=== PATIENT | female | born 1945 | race Caucasian/White ===

== ENCOUNTER → 2023-10-22 07:53 | Outpatient (REF) | payer MEDICARE, OTHER, SELFPAY | LOC: HWRAD 07:53 | PROVIDERS: ATTENDING PHYSICIAN Internal Medicine; FAMILY PHYSICIAN Physician Assistant Medical | DX: M81.0 Age-related osteoporosis without current pathological fracture (principal) | CPT/HCPCS: 77080; 77081 ==

== ENCOUNTER 2023-11-13 04:16 | Inpatient (IN) | payer MEDICARE, OTHER, SELFPAY ==
[2023-11-12 22:51] VITALS: BP 158/102
[2023-11-12 23:07] LABS: % Basophils 0.7 % (0-2); % Immature Granulocytes 0.2 % (0-0.5); % Lymphocytes 36.6 % (20.5-51.1); % Monocytes 7.3 % (1.7-9.3); % Neutrophils 53.2 % (42.2-75.2); Absolute Basophils 0.1 10^3/uL (0-0.2); Absolute Eosinophils 0.2 10^3/uL (0-0.7); Absolute Lymphocytes 3.6 10^3/uL (1.2-3.4); Absolute Monocytes 0.7 10^3/uL (0.1-0.6); Absolute Neutrophils 5.3 10^3/uL (1.4-6.5); Hematocrit 41.7 % (37.0-47.0); Hemoglobin 14.4 g/dL (12.0-16.0); Mean Corp Hgb Conc. 34.5 g/dL (33.0-37.0); Mean Corpuscular Hgb 30.2 pg (27.0-31.0); Mean Corpuscular Volume 87.4 fL (81.0-99.0); Mean Platelet Volume 9.5 fL (7.4-10.4); Nucleated Red Blood Cells % 0 %; Platelet Count 262 10^3/uL (130-400); Red Blood Cell Count 4.77 10^6/uL (4.20-5.40); Red Cell Dist. Width 13.2 % (11.5-14.5); White Blood Cell Count 9.9 10^3/uL (4.8-10.8)
[2023-11-12 23:25] LABS: ALT (SGPT) 30 U/L (0-35); AST (SGOT) 31 U/L (14-36); Albumin 4.4 g/dl (3.5-5.0); Alkaline Phosphatase 47 U/L (38-126); Blood Urea Nitrogen 22 mg/dl (7-17); Calcium 9.8 mg/dl (8.4-10.2); Carbon Dioxide 27 mmol/L (22-30); Chloride 103 mmol/L (98-107); Glucose 119 mg/dl (70-99); Potassium 3.8 mmol/L (3.5-5.1); Sodium 135 mmol/L (135-145); Total Bilirubin 0.3 mg/dl (0.2-1.3); Total Protein 6.7 g/dl (6.3-8.2); eGFR > 60.00
[2023-11-12 23:35] LABS: Troponin I 0.734 ng/ml
[2023-11-12 23:45] VITALS: BP 131/77
[2023-11-13] VITALS (22 sets, daily range): BP systolic 100–166; BP diastolic 67–108; BMI 23.2; BMI 22.4
--- NOTE | 2023-11-13 00:09 | ED.GENMED ---
History of Present Illness
General
Chief Complaint: Chest Pain
Source: patient and spouse
Exam Limitations: none
Time Seen by Provider: 11/12/23 23:49
Nursing documentation reviewed up to this point in time: agreed with
Travel History
Have you had any contact with someone who has COVID-19?: No
Do you have any symptoms of coronavirus? Fever > 100 degrees, chills, cough, shortness of breath, sore throat, loss of taste or smell, muscle aches, or headache?: No
History of Present Illness
History of Present Illness:
78-year-old female presents emerged department complaining of upper back pain and jaw pain with occasional chest pain since 7 PM tonight. She has a history of mild single-vessel coronary disease in the LAD. Catheterization 2016. She recently
learned of news that her son purchased a house and felt stressed.
Past History
Past History
ED Past Medical History: HTN
ED Past Surgical History: Other (R rotator cuff repair, Uterin CA with radiation and Hysterectomy, Hernia repair, several breast biopsies.)
Social History
Tobacco: Non-smoker
Alcohol: Occasional
Drug: None
Personal:
Living: with family
Review of Systems
Review of Systems
Allergies reviewed?: Yes
All Other Systems: Not applicable
Constitutional: Reports no symptoms
EENT: Reports mouth pain
Respiratory: Reports no symptoms
Cardiac: Reports chest pain
ABD/GI: Reports no symptoms
: Reports no symptoms
Musculoskeletal: Reports back pain
Skin: Reports no symptoms
Neurological: Reports no symptoms
Endocrine: Reports no symptoms
Hematologic/Lymphatic: Reports no symptoms
Psychiatric: Reports no symptoms
Phy Exam
Physical Exam
Physical Exam:
Physical Exam
General: Afebrile
Neck: supple. no meningeal signs. normal posterior pharynx
Heart: s1/s2 regular rate and rhythm, no murmur. equal radial
pulses.
HEENT: Pupils equal round reactive to light, EOMI
Lungs: no acute respiratory distress. clear bilaterally
Abdomen: normal bowel sounds. not tender. no CVAT
Neuro: alert and oriented. no focal neurological deficits cranial nerves II through XII intact
Skin: no rash
Psychiatric: well kept. interactive and cooperative
Extremities: no edema. no calf tenderness. negative homans. good distal pulses
Scores
Heart Score for Chest Pain Patients
STEMI patient?: No
History: Moderately Suspicious
ECG: Nonspecific Repolarization
Age: >/= 65 years
Risk Factors: >/= 3 Risk Factors or History of CAD
Troponin: >/= 3 x Normal Limit
Heart Score for Chest Pain Patients: 8
Heart Score Risk: 72.7 % MACE over next 6 weeks
Course
Orders/Labs/Results
Orders:
Orders
11/12/23 22:49
EKG [Electrocardiogram (*1)] Urgent
Reason for Study: Chest Pain
EKG- Treatment ONCE
11/12/23 22:57
CMP [Comprehensive Metabolic Panel] Urgent
11/12/23 22:59
Complete Blood Count/With Diff Urgent
Troponin I Urgent
11/13/23 00:10
CT Chest/abd/pelvis Angio W/wo Urgent
Comment:
Reason For Exam: thoracic back pain, chest pain, elevated troponin
11/13/23 00:35
Amlodipine [Norvasc] 5 mg PO STAT STA
11/13/23 00:37
Nitroglycerin Sublingual [Nitrostat (Sublingual)] 0.4 mg SL NOW STA
11/13/23 02:07
Heparin 3,200 units IV NOW STA
11/13/23 02:[address] Non Medication Order As Directed
Physician Order: PTT 6 hours after initial start of Heparin infusion
11/13/23 02:15
Heparin 51293 Units/250 ml 25,000 units in 250 ml IV PER PROTOCOL
Weight to be used for heparin protocol in kilograms (kg):: 53.9
Protocol:: Cardiac Tx/Acute Coronary
PTT Goal Range to be used:: PTT 73 to 111 seconds
Order type:: Initial
INITIAL Infusion Dose (UNITS/KG/hr) & then follow protocol:: 12 units/kg/hr
Infusion Dose in UNITS/hr & then follow protocol (UNITS/hr):: 650
INFUSION RATE in mL/hr & then follow protocol (mL/hr):: 6.5
PTT less than or equal to 64 seconds:: Increase rate by 200 units/hr (+ 2 mL/hr)
PTT 64.1 to 72.9 seconds:: Increase rate by 100 units/hr (+ 1 mL/hr)
PTT 73 to 111 seconds:: Target Range. No change in rate.
PTT 111.1 to 130.9 seconds:: Decrease rate by 100 units/hr (- 1 mL/hr)
PTT 131 to 199.9 seconds:: HOLD for 1 hr. Then decrease rate by 200 units/hr (- 2 mL/hr)
PTT greater than or equal to 200 seconds:: HOLD for 2 hrs & Notify Provider. Then decrease by 200 units/hr (-
2 mL/hr)
Lab follow-up:: Each change, PTT q6h until 2 consecutive are therapeutic. Then PTT
daily.
11/13/23 02:24
PTT Urgent
Comment: Obtain baseline before beginning heparin infusion if not already collected
Troponin I Urgent
11/13/23 03:00
Flush (0.9% Sodium Chloride) [Flush (Nss)] See Dose Instructions IV PER PROTOCOL
11/13/23 03:52
Admit/Transfer Patient As Directed
Co-Sign Provider:
Level of Care: Inpatient admission
Assign to:: IVU
Physician / Group: Chito
Diagnosis: NSTEMI
Reason for Hospitalization: NSTEMI
Expected length of stay greater than two midnights?: Yes
ELOS- Estimated Length of Stay in days: 2
I certify the patient meets the requirements for IP care: Yes
Code Status As Directed
Resuscitation Status: Full Code
11/13/23 04:26
Acetaminophen [Tylenol] 650 mg PO Q4HPRN PRN
Morphine Sulfate 2 mg IV Q4HPRN PRN
Nitroglycerin Sublingual [Nitrostat (Sublingual)] 0.4 mg SL [id number] PRN
Prochlorperazine [Compazine] 5 mg IV Q6HPRN PRN
11/13/23 04:26
CARDIOLOGY CONSULT Routine
Consulting Provider: Gary Bailey
Was physician already notified: Yes
Reason for consult: NSTEMI
Heparin Protocol- PTT Orders As Directed
PTT per Heparin protocol: -Obtain CBC and baseline PTT - if not already collected.
-Obtain PTT 6 hours from start of infusion. Then, every 6 hours until 2 consecutive
PTT's are therapeutic. Then, PTT Daily.
-With each rate change, obtain PTT every 6 hours until 2 consecutive PTT's are
therapeutic. Then, PTT Daily.
Activity As Directed
Activity Level: Bedrest
EKG with chest pain [ECG as needed] As Directed
ECG as needed for:: Chest Pain
I/O [Intake/ Output] As Directed
Frequency: Per unit guidelines
Notify MD As Directed
Notify physician if: PTT is greater than or equal to 200.
Vital Signs As Directed
Frequency: Per unit guidelines
Weight As Directed
Frequency: Daily
Oxygen Therapy [O2 Therapy] [RESP] Routine
Titrate/Wean O2 to maintain O2 sat greater than (%): 94
11/13/23 06:00
EKG [Electrocardiogram (*1)] IN AM
Reason for Study: Chest Pain
11/13/23 06:29
Basic Metabolic Panel IN AM
Cardiovascular Evaluation IN AM
11/13/23 08:00
Aspirin Low Dose EC [Aspir Low (Enteric Coated)] 81 mg PO DAILY
Losartan [Cozaar] 50 mg PO DAILY
Rosuvastatin Calcium [Crestor] 10 mg PO DAILY
11/14/23 Breakfast
NPO
Allow oral meds: Yes
Allow clear liquids: Sips of Clears
11/15/23 06:00
Complete Blood Count/No Diff Q2D
Comment: notify provider: Platelet count < 130,000 or decrease by 50% from baseline
11/17/23 06:00
Complete Blood Count/No Diff Q2D
Comment: notify provider: Platelet count < 130,000 or decrease by 50% from baseline
11/19/23 06:00
Complete Blood Count/No Diff Q2D
Comment: notify provider: Platelet count < 130,000 or decrease by 50% from baseline
11/21/23 06:00
Complete Blood Count/No Diff Q2D
Comment: notify provider: Platelet count < 130,000 or decrease by 50% from baseline
11/23/23 06:00
Complete Blood Count/No Diff Q2D
Comment: notify provider: Platelet count < 130,000 or decrease by 50% from baseline
11/25/23 06:00
Complete Blood Count/No Diff Q2D
Comment: notify provider: Platelet count < 130,000 or decrease by 50% from baseline
11/27/23 06:00
Complete Blood Count/No Diff Q2D
Comment: notify provider: Platelet count < 130,000 or decrease by 50% from baseline
11/29/23 06:00
Complete Blood Count/No Diff Q2D
Comment: notify provider: Platelet count < 130,000 or decrease by 50% from baseline
Abnormal Lab Results
11/12/23 11/12/23 11/13/23
22:57 22:59 02:24
Absolute Lymphs (auto) 3.6 H 10^3/uL
(1.2-3.4)
Absolute Monos (auto) 0.7 H 10^3/uL
(0.1-0.6)
BUN 22 H mg/dl
(7-17)
Glucose 119 H mg/dl
(70-99)
Troponin I 0.734 H* ng/ml 1.320 H* D ng/ml
11/12/23 22:59
11/12/23 22:57
Vital Signs
Initial and Last Documented VS:
Initial Vital Signs
Temp Pulse Resp BP Pulse Ox
98.1 F 80 22 158/102 98
11/12/23 22:51 11/12/23 22:51 11/12/23 22:51 11/12/23 22:51 11/12/23 22:51
Last Documented Vital Signs
Temp Pulse Resp BP Pulse Ox
98.1 F 70 13 129/78 98
11/12/23 22:51 11/13/23 06:45 11/13/23 06:45 11/13/23 06:00 11/13/23 06:45
MDM/Problems Addressed
Differential Diagnosis Includes:
NSTEMI, aortic dissection
MDM/Problems Addressed:
78-year-old female with likely NSTEMI, no signs of ST elevation on EKG. CT angiography pending to rule out dissection. [place] text sent to Dr. Bailey at 12:09 AM.
Chronic conditions affecting care: CAD and Asthma
Acute Exacerbation and/or Progression of Chronic Illness: CAD and Asthma
*Radiology
Radiology exam reviewed: radiology read reviewed (CT angiography no signs of dissection)
*Pulse Oximetry
Patient hypoxic: no
*EKG
Interpreted by ED Provider?: Yes
EKG Intrepretation Date: 11/13/23
EKG Intrepretation Time: 12:39
Interpretation: abnormal
Comparison EKG: no changes
Heart Rate: 78
Rate: normal
Rhythm: sinus
Onyx: normal axis
Interval: normal interval
QRS Pattern: left bundle branch block
Ischemia: no ischemia
*Milling Operator Interpretation
Rate: normal
Interpretation: normal
Heart Rate: 75
Rhythm: sinus
*Critical Care Note
Total Time (30-74mins, 75-104mins- exclusive of procedures): 30
comment:
Critical care statement: A total of 30 minutes of critical care time was provided for this patient. This includes management of unstable vital signs, evaluation of the patient at bedside, reviewing the patient's pertinent medical records, discussion
with consultants, review of old EKGs and review of pertinent medical records. This time with separate from time utilized to perform the aforementioned documented procedures
Data Reviewed
Review of Other/Old Records Reveals: Operative Reports (Prior cardiac catheterization [address] Carpio, single-vessel LAD lesion, no stent placed)
Patient Management
Social determinants of health affecting care: Living situation
Discussion with other providers: Hospitalist and Family Living Educator (Dr. Bailey, cardiology)
Escalation/DeEscalation of care consider admission/obs:
Admit indicated
ED Attending Note
-
Portions of this chart may have been created with voice recognition software.� Occasional wrong word or��sound alike� substitutions may have occurred due to the inherent limitations of voice recognition software.
Discharge Plan
Departure
Patient Disposition: Admit
Date of Disposition: 11/13/23
Time of Disposition: 02:13
Admit to: IVU
Presentation/result/management discussed w/ accepting MD/DO: Hospitalist
Patient with high blood pressure during this ER visit?: Yes
Condition: Fair
Discharge Problem:
Non-ST elevation [place] (NSTEMI)
Interventions
Interventions:
*Risk Screen - Suicide Last Done: 11/12/23 22:51
*General Assessment Last Done: 11/12/23 23:57
*Neglect/Abuse Screening Last Done: 11/12/23 22:51
ED- Fall Risk Assessment Last Done: 11/12/23 23:57
*ED COVID-19 Vaccine History Last Done: 11/12/23 23:57
ED- Cardiac Assessment Last Done: 11/12/23 23:57
[2023-11-13] MEDS: NITROSTAT (SUBLINGUAL) 0.400000000000000022 MG SL ×2 (00:47→08:49)
[2023-11-13] MEDS: HEPARIN 3200 UNITS IV (02:53)
[2023-11-13] MEDS: HEPARIN 25000 UNITS/250 ML IV (02:56)
[2023-11-13 03:27] LABS: APTT 27.4 Sec (23.4-35.0)
--- NOTE | 2023-11-13 04:54 | HPS.HSE ---
Family Physician
-
Family Physician: Sushil Aguilar PA-C
Chief Complaint
-
Back Pain
History of Present Illness
Patient is a 78y F with PMH significant for non-obstructive CAD and hypertension who presents to ED complaining of back pain. Patient states that she started with pain between her shoulder blades this evening around 7 PM. The pain persisted
despite stretching, Tylenol, etc. She denies any recent injury, strain, etc. Patient states that the pain has radiated around to her chest and into her L neck at times.
She denies any associated lightheadedness, dyspnea, diaphoresis or nausea.
Medical History
Past Medical History
Past Medical History: Reports Other
Additional Past Medical History:
Hypertension
ASCVD
Known LBBB
Uterine Cancer s/p Surgery and XRT
Past Surgical History: Reports Other
Additional Past Surgical History:
Bilateral Rotator Cuff Surgeries
Cardiac Cath (2016) - 40% mid LAD stenosis. No angio / stent.
CLEM / BSA
Social History
Tobacco: Non-smoker
Alcohol: Occasional
Drug: None
Family History
Family History: Not pertinent
Allergies / Home Medications
Allergies reflects when Allergies were last updated in [facility].
Home Medications with original date entered in [facility]
Allergy/Medication List:
Allergies
Allergy/AdvReac Type Severity Reaction Status Date / Time
epinephrine [Epinephrine] AdvReac PASSED OUT Verified 11/12/23 22:54
Home Medications
cholecalciferol (vitamin D3) 10 mcg (400 unit) tablet (Vitamin D3) 2,000 units PO DAILY 02/18/16
hydrochlorothiazide 12.5 mg tablet 12.5 mg PO DAILY 02/18/16
aspirin 81 mg tablet,delayed release 81 mg PO DAILY #1 tab 02/21/16
denosumab 60 mg/mL subcutaneous syringe (Prolia) 60 mg SC [id number] 11/13/23
losartan 50 mg tablet 50 mg PO DAILY 11/13/23
rosuvastatin 10 mg tablet 10 mg PO DAILY 11/13/23
zolpidem 12.5 mg tablet,extended release,multiphase 12.5 mg PO DAILY 11/13/23
Review of Systems
-
History Source: Patient
A 12 point ROS was completed and negative except as noted: Yes
Constitutional: Denies Fever or Chills
Respiratory: Denies Cough or Trouble Breathing
Cardiac: Reports Chest Pain; Denies Palpitations
Abdomen/GI: Denies Abdominal Pain, Nausea, Vomiting or Diarrhea
: Denies Dysuria or Flank Pain
Musculoskeletal: Reports Other (Back pain); Denies Joint Pain
Neurological: Denies Dizzy or Headache
Psych: Denies Depression or Anxiety
Physical Exam
Vital Signs
Vital Signs
Temp Pulse Resp BP Pulse Ox
98.1 F 80 22 158/102 99
11/12/23 22:51 11/12/23 22:51 11/12/23 22:51 11/12/23 22:51 11/12/23 23:57
Physical Exam
General: Other (78y F in no acute distress.)
HEENT: Moist mucous membranes and PERRLA
Respiratory: Clear; No Wheezes, Rales or Rhonchi
Cardiac: S1/S2 and Regular Rhythm; No Murmur
GI: Soft, Non Tender, Non Distended and Normal Bowel Sounds
Musculoskeletal: No Clubbing, No Cyanosis and No Edema
Neuro: AO x 3
Laboratory Results
-
11/12/23 22:59
Laboratory Results
APTT 27.4 Sec (23.4-35.0) 11/13/23 02:24
Total Bilirubin 0.3 mg/dl (0.2-1.3) 11/12/23 22:57
AST 31 U/L (14-36) 11/12/23 22:57
ALT 30 U/L (0-35) 11/12/23 22:57
Alkaline Phosphatase 47 U/L (38-126) 11/12/23 22:57
Troponin I 1.320 ng/ml H* D 11/13/23 02:24
Impression/Plan
-
A/P: Patient is a 78y F with PMH significant for HTN and previously documented non-obstructive coronary disease who presents to ED complaining of upper back pain since this afternoon / evening.
NSTEMI
- Admit for further evaluation and treatment.
- Pain with radiation into the L arm, chest and neck.
- EKG with chronic LBBB and no evident new changes.
- Initial troponin is 0.734 consistent with ischemic myocardial injury.
- Continue to follow troponin to peak.
- IV heparin.
- ASA, statin.
- Cardiology evaluation and probable further ischemic evaluation in AM - sooner if any recurrent pain, etc.
- Follow for any new / worsening symptoms.
Benign Hypertension
- Stable. Continue losartan with holding parameters.
- Consider initiation of beta-abby / adjustment of HTN regimen as needed.
DVT Prophylaxis: On therapeutic heparin
Code Status: Full
[2023-11-13 07:10] LABS: Troponin I 0.769 ng/ml
[2023-11-13 07:29] LABS: Blood Urea Nitrogen 18 mg/dl (7-17); Carbon Dioxide 24 mmol/L (22-30); Chloride 108 mmol/L (98-107); Estimated Creatinine Clearance 48 ml/min; Glucose 108 mg/dl (70-99); HDL Cholesterol 102 mg/dl; LDL Cholesterol, Calculated 46 mg/dl; Potassium 3.8 mmol/L (3.5-5.1); Sodium 136 mmol/L (135-145); Total Cholesterol 157 mg/dl (50-199); Triglyceride 47 mg/dl (10-149); Very Low Density Lipoprotein 9 mg/dl (0-30); eGFR > 60.00
--- NOTE | 2023-11-13 08:16 | CON.CAR ---
Addendum entered and electronically signed by Kulwinder Bartholomew MD 11/13/23 12:48:
Patient seen and examined in collaboration with HEEL SHAVER; agree with below.
-78-year-old female with hypertension presenting with chest/back pain; cardiac enzymes elevated, concerning for ACS/NSTEMI.
-The patient will undergo urgent cardiac catheterization this morning; Case discussed with Interventional Cardiology.
-Continue heparin drip.
-Further recommendations will be based upon cardiac catheterization findings.
Original Note:
Consultation
Consultation Request
Date/Time Consultation Requested: 11/13/2023 04:00
Date/Time Consultation Performed: 11/13/2023 08:00
Requesting Provider: Dr. Dale
Performing Provider: SELVIN Braga for Dr. Bartholomew
Reason for Consultation: Abnormal troponin
Medical History
-
Chief Complaint: Back pain
History of Present Illness:
Claudia Mcknight is a 78-year-old female (known to Dr. Stanley, her primary salvage worker), with nonobstructive CAD (by cardiac catheterization 2015), hypertension, uterine cancer status post resection and XRT, LBBB, and T6 meningioma who
presented to the emergency department with bilateral posterior back pain. Her pain was in between her shoulders. This pain was at rest. It intermittently radiated up her neck. She describes not having a particularly active day yesterday. She
tried stretching and acetaminophen without relief. She did not have associated lightheadedness, dizziness, nausea, nor diaphoresis. She was found to have an abnormal troponin.
Past Medical History
Past Medical History: CAD, Cancer (Uterine [s/p resection and XRT]), HTN, Hypercholesterolemia and Other (T6 meningioma, LBBB)
Past Surgical History: Gynecological
Social History
Tobacco: Non-Smoker
Alcohol: Occasional
Drug: None
Personal:
Living: With Family
Employment: Retired
Allergies / Home Medications
Allergy/AdvReac Type Severity Reaction Status Date / Time
epinephrine [Epinephrine] AdvReac PASSED OUT Verified 11/12/23 22:54
�Medication �Instructions �Recorded �Confirmed �Type
cholecalciferol (vitamin D3) 10 2,000 units PO DAILY 02/18/16 11/13/23 History
mcg (400 unit) tablet (Vitamin D3)
hydrochlorothiazide 12.5 mg tablet 12.5 mg PO DAILY 02/18/16 11/13/23 History
aspirin 81 mg tablet,delayed 81 mg PO DAILY #1 tab 02/21/16 11/13/23 Rx
release
denosumab 60 mg/mL subcutaneous 60 mg SC [id number] 11/13/23 11/13/23 History
syringe (Prolia)
losartan 50 mg tablet 50 mg PO DAILY 11/13/23 11/13/23 History
rosuvastatin 10 mg tablet 10 mg PO DAILY 11/13/23 11/13/23 History
zolpidem 12.5 mg tablet,extended 12.5 mg PO DAILY 11/13/23 11/13/23 History
release,multiphase
Review of Systems
-
History Source: Patient
All other systems: Negative unless noted
Constitutional: No Symptoms
EENT: No Symptoms
Respiratory: No Symptoms
Cardiac: Other (See HPI)
Physical Exam
Vital Signs
Temp Pulse Resp BP Pulse Ox
97.9 F 73 16 139/84 100
11/13/23 07:57 11/13/23 07:52 11/13/23 07:57 11/13/23 07:52 11/13/23 07:57
Lab Results
11/12/23 22:59
11/13/23 06:29
Troponin I Cancelled 11/13/23 16:26
Physical Exam
General: Well Developed, Well Nourished, No Apparent Distress and Comfortable
HEENT: Normocephalic, Anicteric and Moist Mucous Membranes
Respiratory: Clear and Non Labored Respirations
Cardiac: S1/S2 and Regular Rhythm; Negative Peripheral Edema
Breast: Deferred by me
GI: Soft, Non Tender, Non Distended and Normal Bowel Sounds
Rectal: Deferred by Provider
Genito-urinary: No Costovertebral Tender
Musculoskeletal: No Clubbing, No Cyanosis and No Edema
Skin: Warm and Dry
Neuro: AO x 3
Hematologic/Lymphatic: No Lymphadenopathy
Psych: Calm
Impression / Plan
-
NSTEMI
-Bilateral shoulder pain that radiated into her neck
-On daily ASA, now also on heparin drip
-Troponin appears to have peaked at 1.320
-EKG with chronic LBBB
-Echocardiogram today
-Cardiac catheterization today
HTN, stable, follow, may need to readjust medical therapy
HLD, LDL well below goal, continue rosuvastatin (atorvastatin caused hair loss)
T6 meningioma
Uterine cancer status post resection and XRT
Data Reviewed
-
EKG: Report Reviewed by me (Sinus rhythm, LBBB, rate 64)
CT Scan: Report Reviewed by me (CTA formal read pending)
Medical Tests (Nuc Med, Echo etc): Report Reviewed by me
Labs: Labs Reviewed by me
Old Records: Reviewed
[2023-11-13] MEDS: ASPIR LOW (ENTERIC COATED) 81 MG PO (08:50)
--- NOTE | 2023-11-13 09:21 | PTCARENOTE ---
Patient admitted from the ED with pain between her shoulder blades which started last night. IV heparin infusing at 650 units/hr. Patient seen by Dr. Bartholomew, last received SL NTG in the ED, pain has now returned and given NTG SL and baby ASA with
some relief. EKG done and patient seen by Dr. 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
--- NOTE | 2023-11-13 09:55 | ITS.CL.CATH ---
[facility] - Catheterization
Cardiac Catheterization
Procedure Report:
CARDIAC CATHETERIZATION REPORT
Date of Procedure: 11/13/2023
Referring: Kulwinder Bartholomew MD
Indication: Acute non-STEMI with ongoing chest discomfort and left bundle branch block
HEMODYNAMIC DATA
AO: 107/68
LV: 107/14
LEFT VENTRICULOGRAPHY: Anterolateral, apical, and inferoapical akinesis with hyperdynamic basilar wall motion. The EF is 38%
CORONARY ANGIOGRAPHY
Dominance: Right
Left Main: Normal
LAD: Calcific 30% mid LAD stenosis distal to the takeoff of the third diagonal branch with otherwise trivial luminal disease in the LAD proper. D1 is small. D2 is a large bifurcating vessel with trivial luminal irregularities. D3 is a medium
sized vessel with 30% ostial stenosis.
Circumflex: 20% ostial stenosis otherwise normal
RCA: Dominant vessel with mild luminal irregularities in the mid RCA
FloWire assessment: At the conclusion the diagnostic study, we proceeded with FloWire assessment of the mid LAD. The picture was most consistent with Takotsubo; however, I wanted to be sure that the mid LAD lesion was not flow-limiting. Heparin
was used for anticoagulation. A 6 [place] JL 4 guide catheter was used. A 365webcall wire was advanced into the distal LAD. iFR measurements were 0.93, 0.93, and 0.93. Pullback showed resolution to 1.0 at the level of the proximal LAD. These
measurements are consistent with nonflow-limiting disease.
Closure Device: None-the procedure was performed via the right radial artery.
Radiation (mGy): 99.2
DAP (cm2.Gy): 9.2
Fluoroscopy time: 3.7 minutes
CONCLUSIONS
1: Acute non-STEMI presentation
2: Anterolateral, apical, and inferoapical akinesis with EF 38%
3. Noncritical CAD as described similar in appearance to the prior study from 2016. The LAD lesion is nonflow limiting by FloWire assessment
4. The most likely explanation is Takotsubo. We will repeat troponin which was sent from the [facility] to make sure that it is not rising again. If the troponin peak was only 1.3, then Takotsubo seems extremely likely and we would expect
resolution of the left ventricular dysfunction over the next few weeks. Recommend aspirin and Plavix for 1-3 months then aspirin alone. We will begin metoprolol and continue losartan.
Copy to: Kulwinder Bartholomew MD, Sushil Aguilar PA-C
Antoine Carpio MD, FAC, [facility]
[2023-11-13 10:19] LABS: Troponin I 0.497 ng/ml
[2023-11-13] MEDS: CRESTOR 10 MG PO (10:23)
[2023-11-13] MEDS: NSS (PRESERVATIVE FREE) 10 ML IV (10:23)
[2023-11-13] MEDS: KCL 20 MEQ PO (10:23)
[2023-11-13] MEDS: PLAVIX 600 MG PO (10:23)
[2023-11-13] MEDS: PROTONIX IV 40 MG IV (10:23)
[2023-11-13] MEDS: FLUSH (NSS) 1 FLUSH IV (10:24)
[2023-11-13] MEDS: COZAAR PO (10:29)
[2023-11-13] MEDS: NSS 1000 IV (10:30)
--- NOTE | 2023-11-13 11:25 | CM ---
Chart reviewed. Patient is independent of ADLS, lives with her in a 2 [address], 1 CAROL, 0 DME. Plan is for the patient to return home. CM to follow
--- NOTE | 2023-11-13 11:26 | CM ---
Addendum entered by Rosalie Petty RN 11/13/23 12:02:
Patient is agreeable to cost. I will place a free 30 day coupon in the patient's red discharge folder.
Original Note:
Pricing on medications through the patient's [facility], ID# [id number]
Farxiga 10mg daily is retail $489.34 for the first month and then $11.
Jardiance 10 mg retail $ 513.57 then $11
Entresto 24-26mg BID $327.20 then $81.
I will go over pricing with the patient.
--- NOTE | 2023-11-13 12:18 | W.PN.HOSP.TC ---
Today's Communication/Plan
-
ECHO
BB
Dual antiplatelets
Assessment / Plan
Assessment / Plan
78-year-old female with chest pain
Seen after cath
CVS: S1-S2 normal
Chest: CTA B/L
Abdomen: Soft, NT / Bowel sounds present
Extremities: No edema, normal pulses
ART MODEL: Non focal exam
CTA chest abdomen pelvis-no dissection, no PE, trace pericardial effusion, pancreatic cystic lesions
# Non-STEMI
Bilateral shoulder pain with radiation to neck continue aspirin, heparin drip
Troponin peaked to 1.3
Check echo
Cardiac cath today showed Takatsubo. Anterolateral, apical and inferior apical akinesis with ejection fraction 30%. Noncritical coronary disease similar in appearance from 2016.
No clear stressors identified
Aspirin Plavix, metoprolol and losartan
# Hypertension
Patient on HCTZ 12.5, losartan 50 mg daily as outpatient
Continue losartan. Beta-blockers added
# Chronic left bundle branch block
# Hyperlipidemia-continue statin

# [id number]
# T6 meningioma
# Arthritis and osteoporosis
# History of pancreatitis with Pancreatic cystic lesions-needs MRI/MRCP of the abdomen with contrast as outpatient
# Indeterminate left hepatic lobe lesion-possibly hemangioma-Needs MRI as outpatient
# Uterine cancer with history of resection and radiation in the past
# Insomnia on Ambien
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
# DVT prophylaxis-Lovenox
# Full code
Anticipated Discharge: 24 - 48 hours
Subjective/Interval History
-
Date of Service: November 13, 2023
Objective Data
-
Labs:
Laboratory Results
11/13/23 11/13/23 11/13/23
02:24 06:29 09:00
APTT 27.4 Pending
Sodium 136
Potassium 3.8
Chloride 108 H
Carbon Dioxide 24
BUN 18 H
Creatinine 0.7
Glucose 108 H
Calcium 9.0
Vital Signs:
Vital Signs
Temp Pulse Resp BP Pulse Ox
98.3 F 100 16 115/77 98
11/13/23 11:46 11/13/23 12:15 11/13/23 11:46 11/13/23 12:00 11/13/23 11:46
--- NOTE | 2023-11-13 12:23 | PTCARENOTE ---
Patient returned from the [facility] and blocker aid labor at 1000. Radial band in place with a strong radial pulse and pulse ox of 98%. Reviewed post cath restrictions. Patient denies any pain or discomfort. at the bedside, Dr. Carpio in to speak with them. Call
gar within reach, will continue to monitor.
[2023-11-13] MEDS: LOVENOX 40 MG SC (17:35)
--- NOTE | 2023-11-13 18:01 | PTCARENOTE ---
Dressing right wrist is dry and intact, VSS, denies pain. visiting at the bedside. Patient takes ambien HS and requesting it be ordered. Notified Dr. Garcia, prn order placed in [facility].
[2023-11-13] MEDS: TOPROL XL 12.5 MG PO (20:55)
[2023-11-13] MEDS: TYLENOL 650 MG PO (20:59)
[2023-11-13] MEDS: AMBIEN 10 MG PO (22:34)
--- NOTE | 2023-11-13 23:21 | PTCARENOTE ---
Assumed care. Patient in bed appears comfortable. Complains of 3 out 10 pain left scapular area, feels like a dull ache, not reproducible. Tylenol given with some relief. NSR BBB, right radial site intact. Ambien given at hs for sleep
--- NOTE | 2023-11-14 00:42 | PTCARENOTE ---
Attempting to give Tylenol for general aches. Patient spit out the pills, repositioned for comfort
[2023-11-14 05:00] VITALS: BP 112/77
[2023-11-14 06:40] LABS: Blood Urea Nitrogen 15 mg/dl (7-17); Calcium 8.9 mg/dl (8.4-10.2); Carbon Dioxide 28 mmol/L (22-30); Chloride 108 mmol/L (98-107); Estimated Creatinine Clearance 48 ml/min; Glucose 86 mg/dl (70-99); Potassium 4.4 mmol/L (3.5-5.1); Sodium 137 mmol/L (135-145); eGFR > 60.00
--- NOTE | 2023-11-14 06:42 | PTCARENOTE ---
Patient resting overnight, scapular pain resolved, labs collected, lights dimmed
[2023-11-14 07:13] VITALS: BP 118/76
[2023-11-14] MEDS: PLAVIX 75 MG PO (09:07)
[2023-11-14] MEDS: CRESTOR 10 MG PO (09:07)
[2023-11-14] MEDS: COZAAR 50 MG PO (09:08)
[2023-11-14] MEDS: ASPIR LOW (ENTERIC COATED) 81 MG PO (09:08)
[2023-11-14] MEDS: NSS (PRESERVATIVE FREE) 10 ML IV (09:08)
[2023-11-14] MEDS: TOPROL XL 12.5 MG PO ×2 (09:08→09:53)
[2023-11-14] MEDS: PROTONIX IV 40 MG IV (09:09)
--- NOTE | 2023-11-14 09:26 | W.PN.CD ---
Today's Communication / Plan
-
ASA/Plavix for 3 months, then ASA 81mg alone
continue losartan 50mg daily
Toprol XL is new: increase to 25mg bid
ambulate hallway, d/c planning: we will arrange for follow up with us
Impression / Plan
-
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
-with acute non-ischemic myocardial injury, peak trop 1.32
-interventional cards recs reviewed: ASA/Plavix for 3 months, then ASA 81mg alone
-continue losartan 50mg daily
-Toprol XL is new: increase to 25mg bid
Non-obstructive CAD: ASA, Plavix
HTN, stable, follow, may need to readjust medical therapy
HLD, LDL well below goal, continue rosuvastatin 10mg daily (atorvastatin caused hair loss)
T6 meningioma
Uterine cancer status post resection and XRT
Physical Exam
Vital Signs/Labs
Vital Signs
Temp Pulse Resp BP Pulse Ox
97.9 F 79 18 118/76 97
11/14/23 07:16 11/14/23 09:08 11/14/23 07:16 11/14/23 09:08 11/14/23 07:16
11/13/23 11/14/23 11/15/23
06:59 06:59 06:59
Actual Weight 53.9 kg 52.1 kg
11/12/23 22:59
11/14/23 05:59
APTT Cancelled 11/13/23 09:00
Triglycerides 47 mg/dl (10-149) 11/13/23 06:29
LDL Cholesterol, Calc 46 mg/dl 11/13/23 06:29
VLDL Cholesterol, Calc 9 mg/dl (0-30) 11/13/23 06:29
HDL Cholesterol 102 mg/dl 11/13/23 06:29
LAB Results
05/12/3011/13/23 11/13/23
22:59 02:24 04:26
Troponin I 0.734 H* 1.320 H* D Cancelled
11/13/23 11/13/23 11/13/23
06:29 09:43 09:47
Troponin I 0.769 H* D 0.497 H* D Cancelled
11/13/23 11/13/23 11/13/23
10:26 12:00 16:26
Troponin I Cancelled Cancelled Cancelled
11/13/23
18:00
Troponin I Cancelled
Physical Exam
Constitutional: No acute distress and Comfortable
EENT: Moist mucous membranes
Cardiovascular: Rhythm & rate is regular, Pedal edema is absent, JVD pressure is normal and Systolic murmur absent
Respiratory: Respiratory effort normal and Lungs clear to auscul.
GI: Soft, Distention absent and Flat
Neuro/Psych: AO x 3
Data Reviewed
-
Date of Service: November 14, 2023
EKG: Other (Tele: SR, PAC's)
Echo: Report Reviewed by me
Labs: Labs Reviewed by me
--- NOTE | 2023-11-14 10:20 | W.PN.HOSP.TC ---
Today's Communication/Plan
-
Watch pt today
Ambulate in the halls
If stable plan for discharge later today.
Follow up discussed with pr
she is aware re the need for repeat ECHO and also MRI
Assessment / Plan
Assessment / Plan
78-year-old female with chest pain
Feels well. No complaints
CVS: S1-S2 normal
Chest: CTA B/L
Abdomen: Soft, NT / Bowel sounds present
Extremities: No edema, normal pulses
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
CTA chest abdomen pelvis-no dissection, no PE, trace pericardial effusion, pancreatic cystic lesions
# Non-STEMI
Bilateral shoulder pain with radiation to neck continue aspirin, heparin drip
Troponin peaked to 1.3
Echo 11/13/2023-moderately reduced LV systolic function. Ejection fraction 30 to 35%. LAD wall motion abnormality. Stage I diastolic dysfunction with abnormal relaxation.
Cardiac cath today showed Takatsubo. Anterolateral, apical and inferior apical akinesis with ejection fraction 30%. Noncritical coronary disease similar in appearance from 2016.
Aspirin Plavix, metoprolol and losartan
# Hypertension
Patient on HCTZ 12.5, losartan 50 mg daily as outpatient
Continue losartan. Beta-blockers added
# Chronic left bundle branch block
# Hyperlipidemia-continue statin

# [id number]
# T6 meningioma
# Arthritis and osteoporosis
# History of pancreatitis with Pancreatic cystic lesions-needs MRI/MRCP of the abdomen with contrast as outpatient-Pt aware
# Indeterminate left hepatic lobe lesion-possibly hemangioma-Needs MRI as outpatient-Pt aware
# Uterine cancer with history of resection and radiation in the past
# Insomnia on Ambien
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
# DVT prophylaxis-Lovenox
# Full code
D/W Cards at bed side
D/W RN
Anticipated Discharge: Today
Subjective/Interval History
-
Date of Service: November 14, 2023
Objective Data
-
Labs:
Laboratory Results
11/14/23 11/14/23
05:05 05:59
Sodium Cancelled 137
Potassium Cancelled 4.4
Chloride Cancelled 108 H
Carbon Dioxide Cancelled 28
BUN Cancelled 15
Creatinine Cancelled 0.7
Glucose Cancelled 86
Calcium Cancelled 8.9
Vital Signs:
Vital Signs
Temp Pulse Resp BP Pulse Ox
97.9 F 79 18 118/76 97
11/14/23 07:16 11/14/23 09:08 11/14/23 07:16 11/14/23 09:08 11/14/23 07:16
I&O
11/13/23 11/14/23 11/15/23
06:59 06:59 06:59
Intake Total 730 / 730
Balance 730 / 730
[2023-11-14 11:38] VITALS: BP 125/81
--- NOTE | 2023-11-14 12:29 | W.DS.TRANS ---
Addendum entered and electronically signed by Maykel Gracia MD 11/14/23 16:52:
Dictation- [id number]
Original Note:
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
-
Discharge Instructions:
Discharge Diagnosis/Procedures Non STEMI
Cardiac catheterization 11/13/2023
Takotsubo cardiomyopathy
Hypertension
Hyperlipidemia
Asthma
Pancreatic cystic lesions
Insomnia
Diet 2 Gram Sodium
Activity No strenuous activity
Additional Activity See attached instructions.
Bathing Restrictions None
Specialty Instructions Weigh Daily
Instructions:
Stand-Alone Forms: DC Instructions- Cath/EP Lab
Changes to Home Medications: Yes
Discharge Medications:
DC Medications w/original date entered in [facility]
cholecalciferol (vitamin D3) 10 mcg (400 unit) tablet (Vitamin D3) 2,000 units PO DAILY Supplement 02/18/16
denosumab 60 mg/mL subcutaneous syringe (Prolia) 60 mg SC [id number] osteoporosis 11/13/23
losartan 50 mg tablet 50 mg PO DAILY Blood Pressure 11/13/23
rosuvastatin 10 mg tablet 10 mg PO DAILY High Cholesterol 11/13/23
zolpidem 12.5 mg tablet,extended release,multiphase 12.5 mg PO DAILY sleep 11/13/23
aspirin 81 mg tablet,delayed release 81 mg PO DAILY Blood clot prevention/tx #1 tab 11/14/23
clopidogrel 75 mg tablet 75 mg PO DAILY Blood clot prevention/tx #90 tabs 11/14/23
famotidine 20 mg tablet (Pepcid) 20 mg PO DAILY Gastrointestinal issue #90 tabs 11/14/23
metoprolol succinate 25 mg tablet,extended release 24 hr 25 mg PO BID Blood pressure #60 tabs 11/14/23
Home Medication Changes
new
aspirin 81 mg tablet,delayed release 81 mg PO DAILY Blood clot prevention/tx #1 tab 11/14/23
clopidogrel 75 mg tablet 75 mg PO DAILY Blood clot prevention/tx #90 tabs 11/14/23
famotidine 20 mg tablet (Pepcid) 20 mg PO DAILY Gastrointestinal issue #90 tabs 11/14/23
metoprolol succinate 25 mg tablet,extended release 24 hr 25 mg PO BID Blood pressure #60 tabs 11/14/23
Pending Results: No
--- NOTE | 2023-11-14 13:41 | PN.CDI ---
Addendum entered and electronically signed by Maykel Garcia MD 11/14/23 18:47:
Documentation is complete at this time.
Original Note:
CDI
- -
CDI:
Physician Documentation Request
Admit Date: 11/13/23 04:16
Dear Doctor Jose,
Patient presented to the ED with complaints of upper back pain and jaw pain with occasional chest pain
Cardiac cath performed on 11/12 conclusion states 'The most likely explanation is Takotsubo. We will repeat troponin which was sent from the [facility] to make sure that it is not rising again. If the troponin peak was only 1.3, then Takotsubo seems
extremely likely....'
11/13 cardiology progress note states ' Takutsubo cardiomyopathy EF 30-35% - with acute non-ischemic myocardial injury, peak trop 1.32'
11/13 Hospitalist note states 'Non-STEMI.... troponin peaked to 1.3'
In an attempt to clarify potentially conflicting documentation, please clarify the etiology of the elevated troponin:
Non ischemic myocardial injury
NSTEMI
Other
Use of terms such as suspected, likely, concern for, or probable (associated with a specific diagnosis that is being evaluated, monitored, or treated as if it exists) are acceptable and can be coded in the inpatient setting, when documented at the
time of discharge.
Thank you,
Vanessa Ponce RN, BSN
CDI Specialist
tiger text
Please use your independent medical judgment in providing your response.
== END 2023-11-14 15:07 | disposition home or self-care (01) | DRG 281 ==
LOC: IVU 04:16
PROVIDERS: Internal Medicine Cardiovascular Disease; ADMITTING PHYSICIAN Hospitalist; ATTENDING PHYSICIAN Hospitalist; EMERGENCY PHYSICIAN Emergency Medicine; FAMILY PHYSICIAN Physician Assistant Medical; OTHER PHYSICIAN Internal Medicine
PROC: B2151ZZ Fluoroscopy of Left Heart using Low Osmolar Contrast (ICD-10-PCS; 2023-11-13)
PROC: 4A023N7 Measurement of Cardiac Sampling and Pressure, Left Heart, Percutaneous Approach (ICD-10-PCS; 2023-11-13)
PROC: B2111ZZ Fluoroscopy of Multiple Coronary Arteries using Low Osmolar Contrast (ICD-10-PCS; 2023-11-13)
DX: I21.4 Non-ST elevation (NSTEMI) myocardial infarction (principal); I51.81 Takotsubo syndrome; K86.2 Cyst of pancreas; I10 Essential (primary) hypertension; I25.10 Atherosclerotic heart disease of native coronary artery without angina pectoris; I44.7 Left bundle-branch block, unspecified; E78.00 Pure hypercholesterolemia, unspecified; J45.909 Unspecified asthma, uncomplicated; D32.1 Benign neoplasm of spinal meninges; M19.90 Unspecified osteoarthritis, unspecified site; M81.0 Age-related osteoporosis without current pathological fracture; G47.00 Insomnia, unspecified; K76.9 Liver disease, unspecified; M51.36 Other intervertebral disc degeneration, lumbar region; M41.35 Thoracogenic scoliosis, thoracolumbar region; Z85.42 Personal history of malignant neoplasm of other parts of uterus; Z92.3 Personal history of irradiation; Z88.8 Allergy status to other drugs, medicaments and biological substances; Z79.82 Long term (current) use of aspirin
CPT/HCPCS: 71275; 74174; 80048; 80053; 80061; 83036; 84484; 85025; 85347; 85730; 93005; 93306; 93458; 93571; 96374; 99291; C1769; C1894; Q9967

== ENCOUNTER → 2023-11-28 14:15 | Outpatient (REF) | payer MEDICARE, OTHER, SELFPAY | LOC: RAD 14:15 | PROVIDERS: ATTENDING PHYSICIAN Physician Assistant Medical | DX: M25.472 Effusion, left ankle (principal); R07.9 Chest pain, unspecified; R60.0 Localized edema; M79.662 Pain in left lower leg | CPT/HCPCS: 93971 ==

== ENCOUNTER → 2023-12-20 07:59 | Outpatient (REF) | payer MEDICARE, OTHER, SELFPAY | LOC: PAVMRI 07:59 | PROVIDERS: ATTENDING PHYSICIAN Physician Assistant Medical | DX: K86.2 Cyst of pancreas (principal); K76.9 Liver disease, unspecified | CPT/HCPCS: 74183; A9575 ==

== ENCOUNTER → 2024-03-25 12:45 | Outpatient (REF) | payer MEDICARE, OTHER, SELFPAY | LOC: HWRCS 12:45 | PROVIDERS: ATTENDING PHYSICIAN Nurse Practitioner; FAMILY PHYSICIAN Physician Assistant Medical | DX: I51.81 Takotsubo syndrome (principal) | CPT/HCPCS: 93306 ==

== ENCOUNTER → 2024-07-08 08:00 | Outpatient (REF) | payer MEDICARE, OTHER, SELFPAY | LOC: HWWDC 08:00 | PROVIDERS: ATTENDING PHYSICIAN Obstetrics & Gynecology; FAMILY PHYSICIAN Physician Assistant Medical | DX: Z12.31 Encounter for screening mammogram for malignant neoplasm of breast (principal) | CPT/HCPCS: 77063; 77067 ==

== ENCOUNTER → 2024-07-14 10:55 | Outpatient (REF) | payer MEDICARE, OTHER, SELFPAY | LOC: PAVMRI 10:55 | PROVIDERS: ATTENDING PHYSICIAN Internal Medicine Gastroenterology; FAMILY PHYSICIAN Physician Assistant Medical | DX: K86.2 Cyst of pancreas (principal) | CPT/HCPCS: 74183; A9575 ==